=== PATIENT | male | born 1970 | race Caucasian/White ===

== ENCOUNTER 2018-02-22 13:50 | Emergency (ER) | payer OTHER ==
[2018-02-22 16:31] VITALS: PULSE 82; RESP 18; TEMP 98.1
--- NOTE | 2018-02-22 17:18 | ED ---
General Adult HPI - General Chief complaint: Back Pain/Injury Stated complaint: IHS/slipped on roof/back pain Time Seen by Provider: 02/22/18 16:36 Source: patient, RN notes reviewed Mode of arrival: ambulatory Limitations: no limitations - History of Present Illness Initial comments: Patient is a 47-year-old male presenting to the emergency room today with a chief complaint of increased back pain. Patient does admit that approximately a week and a half ago he slipped while he was on the roof falling onto his back. He states he was able to get up continue to work. States he did not think much of a fall at the time but the next few days began having increased lower back pain. Does admit to pain that radiates mostly down the right leg to the calf area. States at times had some pain radiating to the left leg as well. Patient denies any bowel or bladder incontinence retention. Denies any saddle anesthesia. States he's been using ibuprofen with little relief of the pain. - Related Data Previous Rx's Medication Instructions Recorded Cyclobenzaprine [Flexeril] 10 mg PO TID #20 tab 02/22/18 Dexamethasone 0.75 mg PO DIRECTED #12 tablet 02/22/18 Ibuprofen [Motrin] 800 mg PO Q6HR #30 tab 02/22/18 Allergies Allergy/AdvReac Type Severity Reaction Status Date / Time No Known Allergies Allergy Verified 02/22/18 16:31 Review of Systems ROS Statement: Those systems with pertinent positive or pertinent negative responses have been documented in the HPI. ROS Other: All systems not noted in ROS Statement are negative. Past Medical History Past Medical History: No Reported History History of Any Multi-Drug Resistant Organisms: None Reported Additional Past Surgical History / Comment(s): carpal tunnel, knee surgery Past Psychological History: No Psychological Hx Reported Smoking Status: Never smoker Past Alcohol Use History: None Reported Past Drug Use History: None Reported General Exam - General Exam Comments Initial Comments: General: The patient is awake and alert, in no distress, and does not appear acutely ill. Eye: Pupils are equal, round and reactive to light, extra-ocular movements are intact. No nystagmus. There is normal conjunctiva bilaterally. No signs of icterus. Ears, nose, mouth and throat: There are moist mucous membranes and no oral lesions. Neck: The neck is supple, there is no tenderness or JVD. Musculoskeletal: Patient does have tenderness midline lower lumbar at L4-S1. Increased paravertebral tenderness both on the right and left side at L4. Strength 5/5. Sensation intact. Pulses equal bilaterally 2+. Sensation intact to light touch and going and down into the legs. Neurological: A&O x 3. CN II-XII intact, There are no obvious motor or sensory deficits. Coordination appears grossly intact. Speech is normal. Skin: Skin is warm and dry and no rashes or lesions are noted. Psychiatric: Cooperative, appropriate mood & affect, normal judgment. Limitations: no limitations Course Vital Signs 02/22/18 16:27 Temperature 98.1 F Pulse Rate 82 Respiratory 18 Rate Blood Pressure 160/80 O2 Sat by Pulse 98 Oximetry Disposition Clinical Impression: Acute low back pain Disposition: HOME SELF-CARE Condition: Good Instructions: Acute Low Back Pain (ED) Additional Instructions: Please use medication as discussed. Please follow-up with orthopedic/family doctor in the next 25 days. Please return to emergency room if the symptoms increase or worsen or for any other concerns. Prescriptions: Cyclobenzaprine [Flexeril] 10 mg PO TID #20 tab Dexamethasone 0.75 mg PO DIRECTED #12 tablet Ibuprofen [Motrin] 800 mg PO Q6HR #30 tab Is patient prescribed a controlled substance at d/c from ED?: No Referrals: Konstantin Goff MD [Primary Care Provider] - 1-2 days Maximilian Caba MD [Medical Doctor] - 1-2 days Time of Disposition: 18:09
[2018-02-22 18:25] VITALS: BP 150/84
--- NOTE | 2018-02-22 18:38 | XR ---
History: ITS.REASON XR Reason: Pain Exam: XR L SPINE 5 views Comparison: None available FINDINGS: No fracture or malalignment. The disc spaces appear preserved. Mild appearing spondylosis suggested. IMPRESSION: No fracture or malalignment.
== END 2018-02-22 18:15 | disposition home or self-care (01) ==
LOC: EC 13:50
DX: M54.5 Low back pain (principal); M79.605 Pain in left leg; M79.661 Pain in right lower leg; W01.0XXA Fall on same level from slipping, tripping and stumbling without subsequent striking against object, initial encounter; Y92.89 Other specified places as the place of occurrence of the external cause; Y99.0 Civilian activity done for income or pay
CPT/HCPCS: 72110; 99283

== ENCOUNTER 2020-07-01 13:47 | Emergency (ER) | payer OTHER ==
[2020-07-01 15:32] VITALS: BP 137/88; PULSE 102; RESP 17; TEMP 98
--- NOTE | 2020-07-01 15:53 | XR ---
EXAMINATION TYPE: XR chest 2V DATE OF EXAM: 07/01/2020 COMPARISON: NONE HISTORY: Chest pain TECHNIQUE: Frontal and lateral views of the chest are obtained. FINDINGS: There is no focal air space opacity. No evidence for pneumothorax. No pleural effusion. The cardiac silhouette size is within normal limits. The osseous structures are grossly intact. IMPRESSION: 1. No acute cardiopulmonary process.
--- NOTE | 2020-07-01 15:54 | XR ---
EXAMINATION TYPE: XR ankle complete LT DATE OF EXAM: 07/01/2020 COMPARISON: NONE HISTORY: Pain TECHNIQUE: 3 views of the left ankle are submitted for evaluation. FINDINGS: Tiny ossific density adjacent to the medial malleolar tip is suspicious for tiny avulsion f ractures. There is soft tissue swelling about the ankle. Ankle mortise is intact. No additional fract ure seen with certainty at this point in time. IMPRESSION: As above
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
== END 2020-07-01 18:02 | disposition home or self-care (01) ==
LOC: EC 13:47
DX: S20.219A Contusion of unspecified front wall of thorax, initial encounter (principal); S82.892A Other fracture of left lower leg, initial encounter for closed fracture; V86.55XA Driver of 3- or 4- wheeled all-terrain vehicle (ATV) injured in nontraffic accident, initial encounter
CPT/HCPCS: 71046; 99284